=== PATIENT | male | born 1970 | race Hispanic/Latino ===

== ENCOUNTER 2019-07-30 01:13 | Observation (INO) | payer SELFPAY ==
[2019-07-30] MEDS ORDERED: Fentanyl 100 MCG/2 ML VIAL ONE (01:55)
[2019-07-30] MEDS ORDERED: Adacel (T-DAP) 0.5 ML SYRINGE ONE (02:44)
[2019-07-30] MEDS ORDERED: Ketorolac Tromethamine 30 MG/ML VIAL ONE (03:36)
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
[2019-07-30] MEDS ORDERED: Dextrose 50% Abboject 50 ML SYRINGE SLOW IVP PRN (04:32)
[2019-07-30] MEDS ORDERED: Dextrose 5% in Water 1,000 ML IV PRN (04:32)
[2019-07-30] MEDS ORDERED: Cyclobenzaprine 10 MG TAB PO PRN (04:32)
[2019-07-30] MEDS ORDERED: Ondansetron ODT 4 MG TAB PO PRN (04:32)
[2019-07-30] MEDS ORDERED: Ondansetron PF 4 MG/2 ML Vial IVP PRN (04:32)
[2019-07-30] MEDS: Sodium Chloride 0.9% 1,000 ML IV SCH ×3 (04:50→21:53)
[2019-07-30] MEDS: Morphine 2 MG/ML SYRINGE SLOW IVP PRN ×2 (04:56→09:03)
[2019-07-30] MEDS ORDERED: CEFAZOLIN 2 GM in Premix Bag 1 BAG IVPB SCH (06:00)
[2019-07-30] MEDS: Oxazepam 10 MG CAP PO SCH ×3 (06:21→21:52)
[2019-07-30] MEDS: traMADol HCl 50 MG TAB PO SCH ×3 (06:21→18:30)
[2019-07-30] MEDS: Acetaminophen 325 MG TAB PO SCH ×3 (06:21→18:29)
[2019-07-30] MEDS: ceFAZolin 1 GM/D5W 1 GM in Premix Bag 1 BAG IVPB SCH ×3 (06:23→21:53)
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
[2019-07-30 08:13] LABS: #Lymphocytes 1.3 thou/uL (1.20-3.40); #Monocytes 1.1 thou/uL (0.11-0.59); #Neutrophils 11.9 thou/uL (1.40-6.50); %Basophils 0.2 % (0.0-1.0); %Eosinophils 0.2 % (0.0-10.0); %Lymphocytes 9.2 % (21.0-51.0); %Monocytes 7.8 % (0.0-10.0); %Neutrophils 82.6 % (42.0-75.0); Hemoglobin 13.2 g/dL (14.0-18.0); Mean Corpuscular HGB CONC 33.7 g/dL (32.0-36.0); Mean Corpuscular Hemoglobin 29.1 pg (27.0-31.0); Mean Corpuscular Volume 86.4 fL (78.0-98.0); Mean Platelet Volume 8.5 fL (7.4-10.4); Platelet Count 217 thou/uL (130-400); Red Blood Cell (RBC) Count 4.51 mill/uL (4.70-6.10); White Blood Cell (WBC) Count 14.5 thou/uL (4.8-10.8)
[2019-07-30 08:28] LABS: Anion Gap 14 mmol/L (10-20); BUN (Urea Nitrogen) 8 mg/dL (8.9-20.6); Calc. Creatinine Clearance 127 mL/min (70-130); Calcium 8.5 mg/dL (7.8-10.44); Carbon Dioxide 23 mmol/L (22-29); Chloride 108 mmol/L (98-107); Estimated GFR-MDRD Greater than 90; Glucose 116 mg/dL (70-105); Magnesium 1.7 mg/dL (1.6-2.6); Phosphorus 2.5 mg/dL (2.3-4.7); Potassium 3.7 mmol/L (3.5-5.1); Sodium 141 mmol/L (136-145)
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
[2019-07-30] MEDS: Famotidine 20 MG TAB PO SCH ×2 (08:59→21:52)
[2019-07-30] MEDS: Folic Acid 1 MG TAB PO SCH (08:59)
[2019-07-30] MEDS: Enoxaparin Sodium 40 MG/0.4 ML SYRINGE SC SCH (09:00)
[2019-07-30] MEDS: Thiamine 100 MG TAB PO SCH (09:00)
[2019-07-30] MEDS ORDERED: Aspirin 81 mg Enteric Coated Tablet PO SCH (09:00)
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
[2019-07-30] MEDS: traMADol HCl 50 MG TAB PO PRN ×2 (11:26→18:30)
[2019-07-30] MEDS ORDERED: FLU VACC QS2019-20(6MOS UP)/PF 60 MCG/0.5 ML SYRINGE IM ONE (21:00)
[2019-07-31] MEDS: traMADol HCl 50 MG TAB PO PRN ×3 (00:01→11:15)
[2019-07-31 05:56] LABS: #Eosinphils 0.1 thou/uL (0.0-0.7); #Lymphocytes 1.8 thou/uL (1.20-3.40); #Monocytes 0.9 thou/uL (0.11-0.59); #Neutrophils 5.2 thou/uL (1.40-6.50); %Basophils 0.4 % (0.0-1.0); %Eosinophils 1.1 % (0.0-10.0); %Lymphocytes 23.1 % (21.0-51.0); %Monocytes 10.6 % (0.0-10.0); %Neutrophils 64.8 % (42.0-75.0); Hemoglobin 12.8 g/dL (14.0-18.0); Mean Corpuscular Hemoglobin 29.7 pg (27.0-31.0); Mean Corpuscular Volume 87.4 fL (78.0-98.0); Mean Platelet Volume 8.2 fL (7.4-10.4); Platelet Count 188 thou/uL (130-400)
[2019-07-31] MEDS: Acetaminophen 325 MG TAB PO SCH ×3 (05:59→11:12)
[2019-07-31] MEDS: traMADol HCl 50 MG TAB PO SCH ×3 (06:00→11:13)
[2019-07-31] MEDS: Oxazepam 10 MG CAP PO SCH (06:00)
[2019-07-31] MEDS: ceFAZolin 1 GM/D5W 1 GM in Premix Bag 1 BAG IVPB SCH (06:02)
[2019-07-31] MEDS: Sodium Chloride 0.9% 1,000 ML IV SCH ×2 (06:09→08:14)
[2019-07-31 06:16] LABS: Phosphorus 2.1 mg/dL (2.3-4.7)
[2019-07-31 06:21] LABS: Anion Gap 10 mmol/L (10-20); BUN (Urea Nitrogen) 6 mg/dL (8.9-20.6); Calc. Creatinine Clearance 137 mL/min (70-130); Calcium 8.6 mg/dL (7.8-10.44); Carbon Dioxide 27 mmol/L (22-29); Chloride 106 mmol/L (98-107); Estimated GFR-MDRD Greater than 90; Glucose 97 mg/dL (70-105); Magnesium 1.9 mg/dL (1.6-2.6); Potassium 3.7 mmol/L (3.5-5.1); Sodium 139 mmol/L (136-145)
[2019-07-31] MEDS: Famotidine 20 MG TAB PO SCH (08:15)
[2019-07-31] MEDS: Folic Acid 1 MG TAB PO SCH (08:15)
[2019-07-31] MEDS: Enoxaparin Sodium 40 MG/0.4 ML SYRINGE SC SCH (08:15)
[2019-07-31] MEDS: Thiamine 100 MG TAB PO SCH (08:15)
[2019-07-31 11:37] VITALS: BP 139/78; TEMP 98.2
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
== END 2019-07-31 13:12 | disposition home or self-care (01) ==
LOC: ERS 01:13 → SURG B 04:13
PROVIDERS: ADMIT Surgery; ATTEND Surgery
DX: S81.032A Puncture wound without foreign body, left knee, initial encounter (principal); F10.129 Alcohol abuse with intoxication, unspecified; F17.210 Nicotine dependence, cigarettes, uncomplicated; H54.40 Blindness, one eye, unspecified eye; W34.09XA Accidental discharge from other specified firearms, initial encounter
CPT/HCPCS: 36415; 80048; 83735; 84100; 85025; 90471; 90686; 90715; 96361; 96365; 96366; 96372; 96374; 96375; 96376; G0008; G0378; G0390; J0690; J1650; J1885; J2270; J3010